=== PATIENT | female | born 1975 | race Caucasian/White ===

== ENCOUNTER 2023-08-15 08:20 | Emergency (ER) | payer MEDICAID, SELFPAY ==
[2023-08-15 08:27] VITALS: BP 124/66; PULSE 79; RESP 18; TEMP 36; O2SAT 97; BMI 39.3
--- NOTE | 2023-08-15 08:55 | CRLHL7_ITS ---
For Patients: As a result of the Century Cures Act, medical imaging exams and procedure reports are released immediately into your electronic medical record. You may view this report before your referring provider. If you have questions, please contact your health care provider. Indication: Right lower quadrant and right upper quadrant abdominal pain and vomiting Technique: Volumetric multidetector CT images of the abdomen and pelvis were obtained after the administration of intravenous contrast. 106 cc Isovue 370 low osmolar intravenous contrast Comparison: None available. Findings: The lung bases are clear. The liver is normal in attenuation without intrahepatic biliary ductal dilatation. The portal vein is patent. There is prior cholecystectomy. There is no significant common biliary ductal dilatation or abrupt cut off. The spleen is normal in enhancement and size. The stomach and duodenum are grossly unremarkable. The pancreas is normal in enhancement without significant atrophy. The adrenal glands are unremarkable. The kidneys demonstrate preserved corticomedullary differentiation without evidence of obstructive uropathy. There is moderate stool seen throughout the colon without evidence of focal inflammatory change. The appendix is unremarkable. There is no significant mesenteric, retroperitoneal, or pelvic sidewall lymph nodes. The aorta is nonaneurysmal. There is no significant atherosclerotic disease appreciated. Fallopian tube occlusion devices are seen bilaterally. There is a dominant follicle in the left ovary. The pelvic viscera is otherwise grossly within normal limits. There is no free fluid or free air. There is a small fat containing umbilical hernia. The lumbar vertebral body heights are grossly maintained in satisfactory alignment without evidence of displaced fracture, lytic or blastic lesion. Impression: Moderate stool seen throughout the colon. No acute inflammatory change. Normal appendix. Prior cholecystectomy. Please note that all CT scans at this facility use dose modulation, iterative reconstruction, and/or weight-based dosing when appropriate to reduce radiation dose to as low as reasonably achievable. Dictated by Rohan Sánchez MD @ 08/15/2023 10:17:41 AM (Electronically Signed)
--- NOTE | 2023-08-15 08:58 | ED_ITS ---
HPI - General Adult General Date Seen: 08/15/23 Chief complaint: Abdominal Pain Stated complaint: abdominal pain Time Seen by Provider: 08/15/23 08:46 History of Present Illness HPI narrative: This is a 48-year-old generally healthy female who presents to the ER today with her boyfriend for evaluation of abdominal pain, nausea and vomiting. Past surgical history includes cholecystectomy. She is otherwise generally healthy. She was normal yesterday and overnight. Early this morning she woke up from sleep with generalized abdominal pain and nausea. She was very nauseous. She went to the bathroom and tried to throw up but was on able. She began to feel clammy, weak, dizzy, and sweaty. She has had in a chair and was dizzy. She was then able to vomit. She threw up a fairly large volume of yellow liquid. No blood. No diarrhea. She felt somewhat less weak after the vomiting. She remains having abdominal pain. Now it seems to be more on the right than generalized. No fever but she did have sweats earlier. No urinary symptoms. No known sick exposures. No symptoms yesterday or last night. Related Data Previous Rx's Medication Instructions Recorded hydrocodone 5 mg-acetaminophen 325 1 tab PO Q4-6H PRN pain #10 tabs 08/15/23 mg tablet ondansetron 4 mg disintegrating 4 mg PO Q8H PRN nausea and 08/15/23 tablet vomiting #10 tabs Allergies Allergy/AdvReac Type Severity Reaction Status Date / Time No Known Drug Allergies Allergy Verified 08/15/23 08:30 [facility] PFS Social History Smoking Status: Never smoker Do you use any of these nicotine containing products: None Second hand tobacco smoke exposure: No How often do you have a drink containing alcohol: never How often do you have six or more drinks on one occasion: Never AUDIT-C Alcohol total score: 0 Non-prescribed substance use: denies use service: No Exam Narrative: Exam Narrative: Constitutional: Appears well-developed and well-nourished. Alert. Conversant. Non toxic. HENT: Head: Atraumatic. Nose: Nose normal. Mouth/Throat: Oral mucosa is clear and moist. Mucous membranes are not desiccated or cracked. no trismus. Pharynx normal. Eyes: Conjunctivae normal. EOM normal. Pupils equal, round, and reactive to light. No scleral icterus. Neck: Normal range of motion. Neck supple. No tracheal deviation present. Cardiovascular: Normal rate, regular rhythm. No gallop. No friction rub. No murmur heard. Symmetric radial artery pulses Pulmonary/Chest: Effort normal. No stridor. No respiratory distress. No wheezes. No rales. No rhonchi . No tenderness. Abdominal: Soft. Bowel sounds normal. No distension. No mass. Moderate right upper quadrant and right lower quadrant tenderness. No left-sided tenderness. No HSM. No CVA tenderness. No rebound. No guarding. Musculoskeletal: RUE: Normal range of motion. No tenderness. No deformity LUE: Normal range of motion. No tenderness. No deformity RLE: Normal range of motion. No edema. No tenderness. No deformity LLE: Normal range of motion. No edema. No tenderness. No deformity Neurological: Alert and oriented to person, place, and time. Normal strength. CN II-VII intact. No sensory deficit. GCS eye subscore is 4. GCS verbal subscore is 5. GCS motor subscore is 6. Normal coordination Skin: Skin is warm and dry. No rash noted. No pallor. Normal capillary refill. Psychiatric: Normal mood. Normal affect. Const: Vital Signs, click to edit/add: Vital Signs - 24 hr 08/15/23 08:27 Temperature 96.8 F L Pulse Rate [Pulse Oximeter] 79 Respiratory Rate 18 Blood Pressure [Ri ght Upper Arm] 124/66 Pulse Oximetry 97 Oxygen Delivery Me thod Room Air Course Reevaluation(s) Reevaluation #1: Recheck-patient feeling much better after Zofran and Toradol. Pain and nausea much improved. Discussed lab findings and CT findings. Patient is pleased that she does not have appendicitis. Discussed plan of care. She and her boyfriend agree. Vital Signs Vital signs: Initial Vital Signs Temperature 96.8 F L 08/15/23 08:27 Temperature Source Temporal Artery Scan 08/15/23 08:27 Pulse Rate 79 08/15/23 08:27 Respiratory Rate 18 08/15/23 08:27 Blood Pressure 124/66 08/15/23 08:27 Blood Pressure Mean 85 08/15/23 08:27 Blood Pressure Position Supine 08/15/23 08:27 Pulse Oximetry 97 08/15/23 08:27 Oxygen Delivery Method Room Air 08/15/23 08:27 Vital Signs Temperature 96.8 F L 08/15/23 08:27 Pulse Rate 79 08/15/23 08:27 Respiratory Rate 18 08/15/23 08:27 Blood Pressure 124/66 08/15/23 08:27 Pulse Oximetry 97 08/15/23 08:27 Oxygen Delivery Method Room Air 08/15/23 08:27 Temperature 96.8 F L 08/15/23 08:27 Pulse Rate 79 08/15/23 08:27 Respiratory Rate 18 08/15/23 08:27 Blood Pressure 124/66 08/15/23 08:27 Pulse Oximetry 97 08/15/23 08:27 Oxygen Delivery Method Room Air 08/15/23 08:27 Medications Administered Medications: Discontinued Medications Generic Name Dose Route Start Last Admin Trade Name Freq PRN Reason Stop Dose Admin Sodium Chloride 1,000 mls @ 1,000 mls/hr 08/15/23 09:00 08/15/23 10:56 0.9 % Sodium Chloride 1000 Ml IV 08/15/23 09:59 Infused .Q1H MANISH Infusion Ketorolac Tromethamine 15 mg 08/15/23 08:55 08/15/23 09:00 Ketorolac 15 Mg/Ml Inj IVP 08/15/23 08:56 15 mg ONCE ONE Administration Ondansetron HCl 4 mg 08/15/23 08:55 08/15/23 09:00 Ondansetron Odt 4 Mg Tab PO 08/15/23 08:56 4 mg ONCE ONE Administration Medical Decision Making MDM Narrative Medical decision making narrative: Presented to the Emergency Department with generalized abdominal pain with nausea and vomiting. The differential diagnosis of abdominal pain includes: Appendicitis, Bowel Obstruction, Ulcer, Ischemia, retained common bile duct stone, Diverticulitis, Pancreatitis, UTI, kidney stone, Enteritis/Colitis, amongst many other etiologies. Laboratory testing does not reveal a cause for the patient's pain. CT Imaging is noted to be normal. The exact etiology of the abdominal pain is not clear at this time. No life threatening cause or need for emergent surgery or hospital admission is detected today. Suspect this may be gastroenteritis with nausea and crampy pain. She has tremendously improved after Toradol and Zofran. The patient was advised that if symptoms do not completely resolve within another 24 hours re-evaluation with primary care or return to the ED is indicated. The patient also understands that if they worsen, they should return to the ER right away. I discussed the uncertainty about the diagnosis and answered the patient's questions. Abdominal pain return precautions discussed. Prescriptions for Zofran and [place] sent to her pharmacy. Opiate precautions rev iewed Lab Data Labs: Lab Results 08/15/23 Range/Units 09:22 WBC 7.59 (4.50-11.00) K/uL RBC 4.55 (4.00-5.20) m/uL Hgb 12.2 (12.0-16.0) gm/dL Hct 38.2 (33.0-51.0) % MCV 84 (80-100) fL MCH 27 (26-34) pg MCHC 32 (32-36) gm/dL RDW Coeff of Makenzie 14.2 (11.5-15.5) % Plt Count 311 (140-440) K/uL Neut % (Auto) 65.3 (42.0-72.0) % Lymph % (Auto) 26.7 (20-44) % Pettis % (Auto) 5.8 (0.0-11.0) % Eos % (Auto) 1.7 (0.0-7.0) % Baso % (Auto) 0.4 (0.0-3.0) % Neut # (Auto) 4.95 (1.7-7.0) K/uL Lymph # (Auto) 2.03 (0.90-2.90) K/uL Pettis # (Auto) 0.40 (0.00-0.90) K/UL Eos # (Auto) 0.13 (0.00-0.50) K/uL Baso # (Auto) 0.03 (0.00-0.30) K/uL Abs Immat Gran (auto) 0.01 (0.00-0.30) K/uL Imm/Tot Granulo (auto) 0.1 % Sodium 137 (135-149) mmol/L Potassium 3.9 (3.6-5.1) mmol/L Chloride 104 (96-114) mmol/L Carbon Dioxide 24 (20-32) mmol/L Anion Gap 9 (7-15) mEq/L BUN 15 (5-24) mg/dL Creatinine 0.6 (0.5-1.5) mg/dL Estimated Creat Clear 91.68 Estimated GFR 111 ml/min Glucose 106 (60-115) mg/dL Calcium 8.6 (8.4-10.6) mg/dL Total Bilirubin 0.7 (0.1-1.5) mg/dL AST 23 (12-35) U/L ALT 23 (4-35) U/L Alkaline Phosphatase 87 (40-150) U/L Troponin I < 0.01 L (0.01-0.04) ng/mL Total Protein 7.5 (6.0-8.3) g/dL Albumin 4.1 (3.3-5.0) g/dL Lipase 139 (23-300) U/L HCG, Qual Negative (Negative) Urine Color Yellow (Yellow) Urine Appearance Slightly Cloudy A (Clear) Urine pH 6.5 (5.0-8.5) Ur Specific [place] 1.020 (1.000-1.030) Urine Protein Negative (Negative) Urine Glucose (UA) Negative (Negative) Urine Ketones Negative (Negative) Urine Blood Negative (Negative) Urine Nitrite Negative (Negative) Urine Bilirubin Negative (Negative) Urine Urobilinogen 0.2 (0.2-1.0) Ur Leukocyte Esterase Negative (Negative) Urine RBC 0-2 (0-2) Urine WBC 2-5 (0-5) Ur Squamous Epith Cells Few (None-Few) Urine Bacteria Few A (None) Imaging Data CT scan - abdomen: Attestation: I have reviewed the pertinent imaging results. Radiologist's impression: Impression: Moderate stool seen throughout the colon. No acute inflammatory change. Normal appendix. Prior cholecystectomy. ECG Data Attestation: I personally reviewed and interpreted this ECG as follows: Interpretation: Normal sinus rhythm rate 70 [place] 128 QRS axis normal axis. No pathologic Q-waves ST segment/T wave: No ST segment elevation or depression QTc: 432 Discharge Plan Discharge Clinical Impression: Nausea & vomiting, Abdominal pain Patient Disposition: Home, Self-Care Condition: Stable Instructions: Acute Nausea and Vomiting (DC), Abdominal Pain (ED) Additional Instructions: As we discussed, please return to the ER right away if you have worsening symptoms especially worsening or severe pain, uncontrolled vomiting, high fever, bloody vomit or stool, weakness. If you are not completely improved within 24-48 hours, please come back to the ER or see your doctor for a recheck. Use Zofran if needed for nausea. To treat pain you can start with [id number] medications such as Tylenol or ibuprofen. If you have pain uncontrolled by those medications, use the prescription pain killer ([place]). Be careful with [place] because it is an opiate. It can cause sedation, drowsiness, and can be addictive. Prescriptions: New ondansetron 4 mg tablet,disintegrating 4 mg PO Q8H PRN (Reason: nausea and vomiting) Qty: 10 0RF hydrocodone-acetaminophen 5-325 mg tablet 1 tab PO Q4-6H PRN (Reason: pain) Qty: 10 0RF Follow Up/Referrals: Katie Menezes MD [Primary Care Provider] - Stand Alone Forms: [employer] Info Instructions
[2023-08-15] MEDS: KETOROLAC 15 MG/ML inj IVP (09:00)
[2023-08-15] MEDS: ONDANSETRON ODT 4 MG TAB PO (09:00)
[2023-08-15] MEDS: 0.9 % SODIUM CHLORIDE 1000 ml 1,000 ML IV (09:00)
[2023-08-15 09:30] LABS: Basophils Absolute Auto 0.03 K/uL (0.00-0.30); Basophils Percent Auto 0.4 % (0.0-3.0); Eosinophils Absolute Auto 0.13 K/uL (0.00-0.50); Eosinophils Percent Auto 1.7 % (0.0-7.0); Hematocrit 38.2 % (33.0-51.0); Hemoglobin* 12.2 gm/dL (12.0-16.0); Immature Granulocytes Abs Auto 0.01 K/uL (0.00-0.30); Immature Granulocytes Pct Auto 0.1 %; Lymphocytes Absolute Auto 2.03 K/uL (0.90-2.90); Lymphocytes Percent Auto 26.7 % (20-44); Mean Corpuscular HGB Conc 32 gm/dL (32-36); Mean Corpuscular Hemoglobin 27 pg (26-34); Mean Corpuscular Volume 84 fL (80-100); Monocytes Percent Auto 5.8 % (0.0-11.0); Neutrophils Absolute Auto 4.95 K/uL (1.7-7.0); Neutrophils Percent Auto 65.3 % (42.0-72.0); Platelet Count* 311 K/uL (140-440); RDW Coefficient of Variation % 14.2 % (11.5-15.5); Red Blood Count 4.55 m/uL (4.00-5.20); White Blood Count* 7.59 K/uL (4.50-11.00)
[2023-08-15 09:34] LABS: Appearance Urine Slightly Cloudy (Clear); Bilirubin Urine Negative (Negative); Blood Urine Negative (Negative); Color Urine Yellow (Yellow); Glucose Urine Negative (Negative); Ketones Urine Negative (Negative); Leukocyte Esterase Urine Negative (Negative); Nitrite Urine Negative (Negative); Protein Urine Negative (Negative); Urobilinogen Urine 0.2 (0.2-1.0); pH Urine 6.5 (5.0-8.5)
[2023-08-15 09:36] LABS: Slide Review Reflex No
[2023-08-15 09:42] LABS: Albumin* 4.1 g/dL (3.3-5.0); Chloride* 104 mmol/L (96-114)
[2023-08-15 09:43] LABS: Potassium* 3.9 mmol/L (3.6-5.1); Sodium* 137 mmol/L (135-149)
[2023-08-15 09:45] LABS: Anion Gap 9 mEq/L (7-15); Bilirubin Total* 0.7 mg/dL (0.1-1.5); Carbon Dioxide* 24 mmol/L (20-32); Creatinine* 0.6 mg/dL (0.5-1.5); Est. Creatinine Clearance* 91.68; Estimated Glomerular Filt Rate 111 ml/min; Total Protein* 7.5 g/dL (6.0-8.3)
[2023-08-15 09:46] LABS: Alanine Aminotransferase* 23 U/L (4-35); Alkaline Phosphatase* 87 U/L (40-150); Aspartate Amino Transferase* 23 U/L (12-35); Blood Urea Nitrogen* 15 mg/dL (5-24); Calcium* 8.6 mg/dL (8.4-10.6); Glucose* 106 mg/dL (60-115); Lipase* 139 U/L (23-300)
[2023-08-15 09:48] LABS: HCG Qualitative Serum* Negative (Negative)
[2023-08-15 09:51] LABS: Bacteria Urine Few; RBC Urine 0-2 (0-2); Squamous Epithelial Cell Urine Few (None-Few)
[2023-08-15 10:01] LABS: Troponin I* < 0.01 ng/mL (0.01-0.04)
== END 2023-08-15 11:06 | disposition home or self-care (01) ==
PROVIDERS: Emergency Provider Emergency Medicine; PCP Family Medicine
DX: R11.2 Nausea with vomiting, unspecified (principal); R10.9 Unspecified abdominal pain
CPT/HCPCS: 36415; 74177; 80053; 81001; 83690; 84484; 84703; 85025; 87086; 93005; 96361; 96374; 99283; 99284; 99285; A9270; J1885; J7030; Q9967

== ENCOUNTER 2023-09-06 08:43 | Emergency (ER) | payer MEDICAID, SELFPAY ==
[2023-09-06 09:02] VITALS: BP 132/84; PULSE 100; RESP 16; TEMP 36.6; O2SAT 97; BMI 39.3
--- NOTE | 2023-09-06 09:43 | ED_ITS ---
HPI - General Adult General Date Seen: 09/06/23 Chief complaint: Shortness of Breath/Dyspnea Stated complaint: shortness of breath, weakness Time Seen by Provider: 09/06/23 09:28 History of Present Illness HPI narrative: 48-year-old female with a past medical history of cholecystectomy, presenting to the ER this morning with her . She is here because she woke up this morning feeling shaky, weak, with headache, body aches, nonproductive cough, nasal congestion, mild sore throat. She says she was healthy and well yesterday when she went to bed. She does not have any known sick exposures. She is not having any production of sputum. No hemoptysis. No shortness of breath. No nausea or vomiting. No rash. No abdominal pain. No diarrhea. She has a headache. It is generalized. No associated neck stiffness. She feels shaky and weak. She did not have any fluid to drink or any medicine for her headache yet. Related Data Previous Rx's Medication Instructions Recorded hydrocodone 5 mg-acetaminophen 325 1 tab PO Q4-6H PRN pain #10 tabs 08/15/23 mg tablet ondansetron 4 mg disintegrating 4 mg PO Q8H PRN nausea and 08/15/23 tablet vomiting #10 tabs benzonatate 100 mg capsule 100 mg PO BID-TID PRN cough #10 09/06/23 caps nirmatrelvir 300 mg (150 mg See Rx Instructions PO .COMPLEX 09/06/23 x2)-ritonavir 100 mg tablet,dose #30 ea pack (Paxlovid) Allergies Allergy/AdvReac Type Severity Reaction Status Date / Time cellebrex Allergy Unknown Uncoded 09/06/23 09:04 [facility] Social History Smoking Status: Current some day smoker Do you use any of these nicotine containing products: None Second hand tobacco smoke exposure: No How often do you have a drink containing alcohol: never How often do you have six or more drinks on one occasion: Never AUDIT-C Alcohol total score: 0 Non-prescribed substance use: denies use service: No Exam Narrative: Exam Narrative: Constitutional: Appears well-developed and well-nourished. Alert. Conversant. Non toxic. HENT: Head: Atraumatic. No depressed skull fracture, Raccoon Eyes, Alvarez's sig n, or hemotympanum. Face normal. TMs normal bilaterally Nose: Nose normal. Mouth/Throat: Oral mucosa is clear and moist. no trismus. Pharynx normal. Tonsils symmetric. No tonsillar enlargement, erythema, or exudate. Eyes: Conjunctivae normal. EOM normal. Pupils equal, round, and reactive to light. No scleral icterus. Neck: Normal range of motion. Neck supple. No tracheal deviation present. Cardiovascular: Normal rate, regular rhythm. No gallop. No friction rub. No murmur heard. Symmetric radial artery pulses Pulmonary/Chest: Occasional dry cough. Effort normal. No stridor. No respiratory distress. No wheezes. No rales. No rhonchi . No tenderness. Abdominal: Soft. Bowel sounds normal. No distension. No mass. No tenderness. No rebound. No guarding. Musculoskeletal: RUE: Normal range of motion. No tenderness. No deformity LUE: Normal range of motion. No tenderness. No deformity RLE: Normal range of motion. No edema. No tenderness. No deformity LLE: Normal range of motion. No edema. No tenderness. No deformity Lymph: No cervical adenopathy. Neurological: Alert and oriented to person, place, and time. Normal strength. CN II-VII intact. No sensory deficit. GCS eye subscore is 4. GCS verbal subscore is 5. GCS motor subscore is 6. Normal coordination Skin: Skin is warm and dry. No rash noted. No pallor. Normal capillary refill. Psychiatric: Normal mood. Normal affect. Const: Vital Signs, click to edit/add: Vital Signs - 24 hr 09/06/23 09:02 Temperature 97.8 F Pulse Rate [Pulse Oximeter] 100 Respiratory Rate 16 Blood Pressure [Ri ght Upper Arm] 132/84 Pulse Oximetry 97 Oxygen Delivery Me thod Room Air Course Course ED Course: Recheck-resting in bed. Hemodynamically and rest really stable. Feeling somewhat better after ibuprofen. Vital Signs Vital signs: Initial Vital Signs Temperature 97.8 F 09/06/23 09:02 Temperature Source Temporal Artery Scan 09/06/23 09:02 Pulse Rate 100 09/06/23 09:02 Respiratory Rate 16 09/06/23 09:02 Blood Pressure 132/84 09/06/23 09:02 Blood Pressure Mean 100 09/06/23 09:02 Blood Pressure Position Supine 09/06/23 09:02 Pulse Oximetry 97 09/06/23 09:02 Oxygen Delivery Method Room Air 09/06/23 09:02 Vital Signs Temperature 97.8 F 09/06/23 09:02 Pulse Rate 100 09/06/23 09:02 Respiratory Rate 16 09/06/23 09:02 Blood Pressure 132/84 09/06/23 09:02 Pulse Oximetry 97 09/06/23 09:02 Oxygen Delivery Method Room Air 09/06/23 09:02 Temperature 97.8 F 09/06/23 09:02 Pulse Rate 100 09/06/23 09:02 Respiratory Rate 16 09/06/23 09:02 Blood Pressure 132/84 09/06/23 09:02 Pulse Oximetry 97 09/06/23 09:02 Oxygen Delivery Method Room Air 09/06/23 09:02 Medications Administered Medications: Discontinued Medications Generic Name Dose Route Start Last Admin Trade Name Freq PRN Reason Stop Dose Admin Ibuprofen 600 mg 09/06/23 09:42 09/06/23 09:53 Ibuprofen 600 Mg Tablet PO 09/06/23 09:43 600 mg ONCE ONE Administration Medical Decision Making [facility] Narrative Medical decision making narrative: This patient presents for evaluation of fever, chills, shakiness, headache, and mild cough that began when she woke up this morning. This is consistent with an upper respiratory tract infection. She was initially refusing nasal swab but ultimately consented. Viral testing is negative for influenza and RSV. She is positive for coronavirus.. There is no signs at this point of serious bacterial infection such as OM, RPA, epiglottitis, ESTATE [employer]GER, strep pharyngitis, pneumonia, sinusitis, meningitis, bacteremia, serious bacterial infection. Given clear lungs, fever curve, no hypoxia and no respiratory distress I do not feel a CXR is indicated at this point as the probability of bacterial pneumonia is very unlikely. There are no gastrointestinal symptoms at this point and no signs of dehydration. She is on day 1 of illness with coronavirus. She has only had 1 vaccine but no blisters. She has had 1 previous episode of COVID and did not require hospitalization but apparently did develop long COVID with over a year of symptoms. Risk factors severe illness would include obesity. At this point I think she would qualify for treatment with Paxlovid. She is not on any medications that would interact. She was prescribed Paxlovid through the ER today. Precautions for return to the ER and risk of worsening illness were reviewed. Questions answered. Discussed supportive care. Discussed quarantine and isolation. Lab Data Labs: Lab Results 09/06/23 Range/Units 09:50 SARS-CoV-2 (PCR) POSITIVE SARS-CoV-2 A (Negative) Influenza Type A (PCR) Negative PCR FLU A (Negative) Influenza Type B (PCR) Negative PCR FLU B (Negative) RSV (PCR) Negative PCR RSV (Negative) Group A Strep DNA NOT DETECTED (Not Detectd) Discharge Plan Discharge Clinical Impression: 2019 novel coronavirus detected Patient Disposition: Home, Self-Care Condition: Stable Instructions: COVID-19 (Coronavirus Disease 2019) (ED), COVID-19: Slow the Coronavirus Spread (ED), How to Recover from COVID-19 at Home (ED) Additional Instructions: As we discussed, please come back to the ER right away if you have worsening cough, trouble breathing, oxygen measurements below 90%, uncontrolled vomiting, severe headache, severe weakness, dehydration, or if you have any concerns. You should quarantine for at least 5 days, and after that wear a mask if you have to go out for at least 10 days. Prescriptions: New Paxlovid 300 mg (150 mg x 2)-100 mg tablets,dose pack See Rx Instructions .ROUTE .COMPLEX Qty: 30 0RF Rx Instructions: take TWO 150 mg tablets of nirmatrelvir with ONE 100 mg tablet of ritonavir twice daily for 5 days benzonatate 100 mg capsule 100 mg PO BID-TID PRN (Reason: cough) Qty: 10 0RF No Action ondansetron 4 mg tablet,disintegrating 4 mg PO Q8H PRN (Reason: nausea and vomiting) Qty: 10 0RF hydrocodone-acetaminophen 5-325 mg tablet 1 tab PO Q4-6H PRN (Reason: pain) Qty: 10 0RF Follow Up/Referrals: Katie Menezes MD [Primary Care Provider] - Stand Alone Forms: [employer] Info Instructions
[2023-09-06] MEDS: IBUPROFEN 600 MG TABLET PO (09:53)
--- NOTE | 2023-09-06 09:54 | ED.NURSE ---
Schedule Supervisor triple swab done, strep swab done
[2023-09-06 10:28] LABS: Strep A DNA Probe* NOT DETECTED (Not Detectd)
[2023-09-06 10:36] LABS: PCR FLU A Negative PCR FLU A (Negative); PCR FLU B Negative PCR FLU B (Negative); PCR RSV Negative PCR RSV (Negative)
[2023-09-06 10:59] LABS: SARS PCR* POSITIVE SARS-CoV-2 (Negative)
== END 2023-09-06 11:20 | disposition home or self-care (01) ==
PROVIDERS: Emergency Provider Emergency Medicine; PCP Family Medicine
DX: U07.1 COVID-19 (principal)
CPT/HCPCS: 87631; 87651; 95992; 99283; A9270